=== PATIENT | male | born 1990 | race Caucasian/White ===

== ENCOUNTER 2018-11-01 17:15 | Emergency (ER) | payer OTHER ==
[2018-11-01 17:27] VITALS: BP 131/83; PULSE 99; RESP 17; TEMP 98.7; O2SAT 97
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
== END 2018-11-01 19:50 | disposition home or self-care (01) ==
LOC: C.ER 17:15
DX: S00.83XA Contusion of other part of head, initial encounter (principal); R68.84 Jaw pain; Y08.89XA Assault by other specified means, initial encounter; Y92.89 Other specified places as the place of occurrence of the external cause